=== PATIENT | female | born 1950 | race Caucasian/White ===

== ENCOUNTER 2023-03-01 11:02 | Emergency (ER) | payer OTHER ==
[~2023-03-01] VITALS: Ht 149.9 cm; Wt 53.0 kg
[2023-03-01] MEDS ORDERED: IOHEXOL 350 MG/ML 100ML IJ ONE (13:22)
[2023-03-01 13:50] LABS: Basophils # (auto) 0.1 10 ^3/uL (0-0.2); Eosinophils # (auto) 0.1 10 ^3/uL (0-0.8); Hemoglobin 12.8 g/dL (12.2-16.2); Monocytes # (auto) 0.6 10 ^3/uL (0-1.3)
[2023-03-01 13:53] LABS: Basophils % (auto) 1.2 % (0.0-2.0); Eosinophils % (auto) 0.9 % (0.0-7.0); Hematocrit 38.3 % (36.0-46.0); Lymphocytes # (auto) 1.2 10 ^3/uL (0.4-5.4); Lymphocytes % (auto) 13.2 % (10.0-50.0); Mean Corpuscular Hemoglobin 29.2 pg (28.0-32.0); Mean Corpuscular Hgb Conc. 33.4 g/dL (32.0-36.0); Mean Corpuscular Volume 87.2 fL (80.0-100.0); Monocytes % (auto) 6.7 % (0.0-12.0); Neutrophils # (auto) 7.1 10 ^3/uL (1.6-8.6); Nucleated Red Blood Cells % 0.1 %; Red Blood Cells 4.39 10^6/uL (4.0-5.20); Red Cell Distribution Width 13.8 % (11.8-14.3); White Blood Cell 9.1 10^3/uL (4.4-10.8)
[2023-03-01 14:13] LABS: Albumin 3.7 g/dL (3.4-5.0); CRP High Sensitivity 0.44 mg/dL (< 0.3); Calcium 8.9 mg/dL (8.5-10.1); Potassium 3.9 mmol/L (3.5-5.1)
[2023-03-01 14:16] LABS: Bilirubin, Total 0.2 mg/dL (0.2-1.0); Total Protein 7.2 g/dL (6.4-8.2)
[2023-03-01 16:37] VITALS: BP 155/79
== END 2023-03-01 16:40 | disposition home or self-care (01) ==
LOC: ER 11:02
DX: H43.812 Vitreous degeneration, left eye (principal); E78.5 Hyperlipidemia, unspecified
CPT/HCPCS: 36415; 70450; 70496; 80053; 84484; 85025; 85652; 86141; 99285; Q9967